=== PATIENT | female | born 1995 | race Asian ===

== ENCOUNTER 2018-07-08 02:03 | Emergency (ER) | payer OTHER ==
[~2018-07-08] VITALS: Ht 160 cm; Wt 59.0 kg
[~2018-07-08 02:03] MED LIST: FAMO-119 PO
--- OUTSIDE RECORDS SUMMARY | 2018-07-08 02:10 | XMS REPORT ---
Author Author ANTONY Gómez Organization [facility] Address [address] [place] [address] Care Team Providers Care Hematology Supervisor Name Role Phone ANTONY Gómez Unavailable PROBLEMS Type Condition ICD9-CM Code JCF30-PL Code Onset Dates Condition Status SNOMED Code Problem Gastroesophageal reflux disease without esophagitis K21.9 Active [id number] ALLERGIES No Known Allergies ENCOUNTERS Encounter Location Date Diagnosis [facility] [address] [id number] [address] Nov, Cerumen impaction H61.20 and Acute nasopharyngitis (common cold) J00 [facility] [address] [id number] [address] Jun, Epigastric pain R10.13 and Gastroesophageal reflux disease without esophagitis K21.9 IMMUNIZATIONS No Known Immunizations SOCIAL HISTORY Never Assessed REASON FOR VISIT runny nose, cough, right earache for 3 days. [email or web address] PLAN OF CARE Activity Details Follow Up prn Reason: VITAL SIGNS Height 63 in 2016-11-09 Weight 147 lbs 2016-11-09 Temperature 97.9 degrees Fahrenheit 2016-11-09 Heart Rate 84 bpm 2016-11-09 Respiratory Rate 20 2016-11-09 BMI 26.04 kg/m2 2016-11-09 Blood pressure systolic 110 mmHg 2016-11-09 Blood pressure diastolic 70 mmHg 2016-11-09 MEDICATIONS No Known Medications RESULTS No Results PROCEDURES Procedure Date Ordered Result Body Site EAR IRRIGATION Nov 09, 2016 INSTRUCTIONS MEDICATIONS ADMINISTERED No Known Medications
--- OUTSIDE RECORDS SUMMARY | 2018-07-08 02:10 | XMS REPORT | Continuity of Care Document ---
Author Organization Unknown Address Unknown Allergies Active Description Code Type Severity Reaction Onset Reported/Identified Relationship to Patient Clinical Status Yes No Known Drug Allergies [id number] Drug Allergy Unknown N/A 03/30/2015 Medications There is no data. Problems Date Dx Coded Attending Type Code Diagnosis Diagnosed By 03/30/2015 ILDEFONSO MONDRAGON, ENRIKE Schaffer Ot R10.13 03/30/2015 ILDEFONSO MONDRAGON, ENRIKE Schaffer Ot R11.2 03/30/2015 ILDEFONSO MONDRAGON, ENRIKE Schaffer Ot R19.7 Procedures There is no data. Results There is no data. Encounters ACCT No. Visit Date/Time Discharge Status Pt. Type Provider Facility Loc./Unit Complaint [id number] 06/20/2018 13:40:00 06/20/2018 23:59:59 CLS Outpatient [facility] [id number] 03/30/2015 01:00:00 03/30/2015 02:27:00 DIS Emergency ILDEFONSO MONDRAGON, ENRIKE Schaffer [facility]
--- NOTE | 2018-07-08 02:29 | ED Integumentary General ---
General Chief Complaint: Allergic Reaction Stated Complaint: RASH THAT VALDIVIA Source: patient, other Exam Limitations: no limitations History of Present Illness Date Seen by Provider: July 08, 2018 Time Seen by Provider: 02:15 Initial Comments Patient presents to ER by private conveyance with her significant other and chief complaint of a rash that showed up in the last hour or so. It's burning rash over her trunk and some of her upper extremities but sparing the lower extremities, palms, soles and mucous membranes. This there is a small amount just to the right of her face. She denies using any new detergents, soaps, shampoos, soaps, body wash his sheets or clothing etc. She denies any medical allergies and does not take any medicines. Occasionally she will use Casandra but she has not used that and weeks. She does not use control. Allergies and Home Medications Allergies Coded Allergies: No Known Drug Allergies (Unverified , 03/30/15) Home Medications Famotidine 20 Mg Tablet, 20 MG PO BID Prescribed by: ENRIKE JENNINGS on 03/30/15 0225 Patient Home Medication List Home Medication List Reviewed: Yes Review of Systems Review of Systems Constitutional: No chills, No diaphoresis EENTM: No ear pain, No eye pain Respiratory: No cough, No short of breath Cardiovascular: No chest pain, No edema Gastrointestinal: No abdominal pain, No nausea Genitourinary: No discharge, No dysuria Skin: pruritus, rash Past Kdsaoyh-Srqzel-Ccnhgs Hx Patient Social History Alcohol Use: Denies Use Recreational Drug Use: No Smoking Status: Never a Smoker Recent Foreign Travel: No Contact w/Someone Who Travel: No Seasonal Allergies Seasonal Allergies: No Past Medical History Orthopedic Adverse Reaction/Blood Tranf: No Physical Exam Vital Signs Capillary Refill : General Appearance: WD/WN, no apparent distress HEENT: normal ENT inspection, pharynx normal Neck: non-tender, full range of motion, supple Cardiovascular: normal peripheral pulses, regular rate, rhythm Respiratory: no respiratory distress, no accessory muscle use Extremities: normal range of motion, normal capillary refill Neurologic/Psychiatric: alert, oriented x 3 Skin: rash (erythematous, nonindurated patchy confluences rash over her neck, trunk and part of her upper arms. No vesicles, bullae or discharge.) Progress/Results/Core Measures Progress Progress Note : Time: 02:27 Progress Note We'll give her some Benadryl, Claritin and put her on a topical steroid. We offered to do oral steroids but she declined. Departure Impression Primary Impression: Rash and nonspecific skin eruption Disposition: HOME, SELF-CARE Condition: Stable Departure-Patient Inst. Decision time for Depature: 02:28 Referrals: NO,LOCAL PHYSICIAN (PCP/Family) Primary Care Physician Patient Instructions: Skin Rash (DC) Add. Discharge Instructions: Keep your skin moisturized with a hypoallergenic creams such as Nutraderm, Cetaphil, CeraVe etc. Avoid using perfumes or strongly scented body washes. superintendent drivers the steroid cream and apply a thin amount over the affected area twice a day for one week. Plan to follow up with primary care in 1 week for reexamination. All discharge instructions reviewed with patient and/or family. Voiced understanding. Scripts Triamcinolone Acet (Triamcinolone Acetonide 0.025%) 15 Gm Cr 1 GM TP BID for 7 Days, #1 TUBE 0 Refills Prov: BRITTNEE STANFORD 07/08/18 BRITTNEE STANFORD July 08, 2018 02:29
[2018-07-08] MEDS ORDERED: TR025C15 TP (02:30)
[2018-07-08 02:45] VITALS: BP 120/80
[2018-07-08] MEDS ORDERED: diphenhydrAMINE 25 MG TAB (BENADRYL) PO ONE (02:45)
[2018-07-08] MEDS ORDERED: LORATADINE (CLARITIN) 10 MG TAB PO ONE (02:45)
== END 2018-07-08 02:45 | disposition home or self-care (01) ==
LOC: EDUNIT# 02:03 → ER 02:06
DX: R21 Rash and other nonspecific skin eruption (principal)
CPT/HCPCS: 99283